=== PATIENT | female | born 1955 | race Caucasian/White ===

== ENCOUNTER 2017-11-29 08:59 | Inpatient (IN) | payer OTHER ==
[2017-11-29 09:47] LABS: ADD MAN DIFF? NO
[2017-11-29 09:52] LABS: WHITE BLOOD COUNT 8.4 10^3/ul (4.8-10.8)
[2017-11-29 09:52] LABS: BASOPHILS % 0.4 % (0.0-2.0); EOSINOPHILS % 0.2 % (0.0-7.0); HEMATOCRIT 38.2 % (37.0-47.0); HEMOGLOBIN 12.5 g/dl (12.0-16.0); LYMPHOCYTES # 1.5 10^3/ul (0.8-2.9); LYMPHOCYTES % 18.3 % (15.0-51.0); MEAN CORPUSCULAR HGB CONC 32.7 g/dl (32.0-37.0); MEAN CORPUSCULAR VOLUME 85.7 fl (82.0-101.0); MEAN PLATELET VOLUME 10.5 fl (7.4-10.4); MONOCYTE # 0.4 10^3/ul (0.3-0.9); MONOCYTES % 4.7 % (0.0-11.0); NEUTROPHIL # 6.4 10^3/ul (1.6-7.5); NEUTROPHILS % 76.2 % (39.0-77.0); PLATELET COUNT 298 10^3/UL (140-415); RED BLOOD COUNT 4.46 10^6/ul (4.20-5.40); RED CELL DISTRIBUTION WIDTH 13.3 % (11.5-14.5)
[2017-11-29] MEDS: LACTATED RINGER'S 1,000 ML IV* (09:54)
[2017-11-29 10:11] LABS: INR 0.96; PROTIME 12.9 Sec (11.9-14.9)
[2017-11-29 10:14] LABS: ALANINE AMINOTRANSFERASE 32 IU/L (13-69); ALBUMIN 4.1 g/dl (3.3-4.9); ALKALINE PHOSPHATASE 92 IU/L (42-121); ANION GAP 13 (8-16); ASPARTATE AMINO TRANSFERASE 31 IU/L (15-46); BILIRUBIN,INDIRECT 0.6 mg/dl (0-1.1); BILIRUBIN,TOTAL 0.6 mg/dl (0.2-1.3); BLOOD UREA NITROGEN 11 mg/dl (7-20); CALCIUM 9.3 mg/dl (8.4-10.2); CARBON DIOXIDE 29 mmol/L (21-31); CHLORIDE 107 mmol/L (97-110); CREATININE 0.58 mg/dl (0.44-1.00); GLUCOSE 98 mg/dl (70-220); POTASSIUM 3.7 mmol/L (3.5-5.1); SODIUM 145 mmol/L (135-144); TOTAL PROTEIN 8.2 g/dl (6.1-8.1)
[2017-11-29] MEDS ORDERED: ROCURONIUM 50 MG INJ (10:48)
[2017-11-29] MEDS ORDERED: CEFAZOLIN 1 GM INJ (10:48)
[2017-11-29] MEDS ORDERED: MIDAZOLAM 1 MG/ML 2 ML INJ (10:48)
[2017-11-29] MEDS ORDERED: PROPOFOL 20 ML (10:48)
[2017-11-29] MEDS ORDERED: OXYCODONE/ACETAMINOPHEN (5/325) TAB PO ×2 (11:00)
[2017-11-29] MEDS ORDERED: HYDROmorphONE 1 MG/5 ML IV SYRINGE IV ×3 (11:00)
[2017-11-29] MEDS ORDERED: DIPHENHYDRAMINE 50 MG INJ IV (11:00)
[2017-11-29] MEDS ORDERED: METOCLOPRAMIDE 10 MG INJ IV (11:00)
[2017-11-29] MEDS ORDERED: LABETALOL HCL 20MG INJ IV (11:00)
[2017-11-29] MEDS ORDERED: hydrALAzine 20 MG INJ IV (11:00)
[2017-11-29] MEDS ORDERED: ONDANSETRON 4 MG INJ IV ×2 (11:00→16:00)
[2017-11-29] MEDS ORDERED: FENTAnyl 50 MCG/ML VIAL IV ×3 (11:00)
[2017-11-29] MEDS ORDERED: EPHEDrine SULFATE 50 MG/5 ML SYG IV (11:00)
[2017-11-29] MEDS ORDERED: MEPERIDINE 25 MG INJ IV (11:00)
[2017-11-29] MEDS ORDERED: ONDANSETRON 4 MG INJ (12:11)
[2017-11-29] MEDS ORDERED: KETOROLAC 30 MG INJ (12:11)
[2017-11-29] MEDS ORDERED: METOCLOPRAMIDE 10 MG INJ (12:11)
[2017-11-29] MEDS ORDERED: DEXAMETHASONE 4 MG/ML 1 ML INJ (12:11)
[2017-11-29] MEDS ORDERED: NEOSTIGMINE 3 MG/3 ML SYRINGE (12:24)
[2017-11-29] MEDS ORDERED: GLYCOPYRROLATE 0.4 MG INJ (12:24)
[2017-11-29] MEDS ORDERED: morphine 2 MG INJ IV ×2 (13:00→16:00)
[2017-11-29] MEDS ORDERED: ACETAMINOPHEN 1000MG/100ML IV 100 ML IVPB (13:00)
[2017-11-29] MEDS: ONDANSETRON 4 MG INJ IV (14:41)
[2017-11-29] MEDS: D5W-0.45 NACL + KCL 20 MEQ 1,000 ML IV ×2 (14:47→22:43)
[2017-11-29] MEDS ORDERED: HYDROCODONE/APAP (5/325) TAB PO (16:00)
[2017-11-29] MEDS ORDERED: ZOLPIDEM 5 MG TAB PO (16:00)
[2017-11-29] MEDS: CEFAZOLIN 2 GM/50 ML (PMX) 50 ML IVPB (19:12)
[2017-11-29] MEDS ORDERED: NON-FORMULARY/PATIENT OWN MED (Latanoprost 1 DROP) BOTH EYES (21:00)
[2017-11-29] MEDS: LATANOPROST 0.005% 2.5 ML OPH BOTH EYES (21:32)
[2017-11-29] MEDS: FAMOTIDINE 20 MG TAB PO (21:32)
[2017-11-30] MEDS: D5W-0.45 NACL + KCL 20 MEQ 1,000 ML IV ×3 (06:08→20:50)
[2017-11-30 06:14] LABS: ADD MAN DIFF? NO
[2017-11-30 06:19] LABS: WHITE BLOOD COUNT 14.1 10^3/ul (4.8-10.8)
[2017-11-30 06:19] LABS: BASOPHILS % 0.1 % (0.0-2.0); HEMATOCRIT 33.3 % (37.0-47.0); HEMOGLOBIN 10.9 g/dl (12.0-16.0); LYMPHOCYTES # 1.1 10^3/ul (0.8-2.9); LYMPHOCYTES % 8.1 % (15.0-51.0); MEAN CORPUSCULAR HGB CONC 32.7 g/dl (32.0-37.0); MEAN CORPUSCULAR VOLUME 85.6 fl (82.0-101.0); MEAN PLATELET VOLUME 10.7 fl (7.4-10.4); MONOCYTE # 0.9 10^3/ul (0.3-0.9); MONOCYTES % 6.1 % (0.0-11.0); NEUTROPHILS % 85.3 % (39.0-77.0); PLATELET COUNT 277 10^3/UL (140-415); RED BLOOD COUNT 3.89 10^6/ul (4.20-5.40); RED CELL DISTRIBUTION WIDTH 13.9 % (11.5-14.5)
[2017-11-30 07:12] LABS: ANION GAP 9 (8-16); BLOOD UREA NITROGEN 7 mg/dl (7-20); CALCIUM 8.8 mg/dl (8.4-10.2); CARBON DIOXIDE 26 mmol/L (21-31); CHLORIDE 110 mmol/L (97-110); CREATININE 0.53 mg/dl (0.44-1.00); GLUCOSE 125 mg/dl (70-220); SODIUM 141 mmol/L (135-144)
[2017-11-30] MEDS: FAMOTIDINE 20 MG TAB PO ×2 (08:48→20:49)
[2017-11-30] MEDS: LATANOPROST 0.005% 2.5 ML OPH BOTH EYES (20:50)
[2017-12-01] MEDS: D5W-0.45 NACL + KCL 20 MEQ 1,000 ML IV ×2 (05:00→13:00)
[2017-12-01] MEDS: FAMOTIDINE 20 MG TAB PO (09:19)
[2017-12-01] MEDS: BISACODYL (EC) 5 MG TAB PO (10:29)
[2017-12-01] MEDS: MAGNESIUM HYDROXIDE 30ML CUP PO (13:16)
== END 2017-12-01 14:07 | disposition home or self-care (01) | DRG 580 ==
LOC: REC 08:59 → MS1 11-30 02:35
PROC: 0HTT0ZZ Resection of Right Breast, Open Approach (ICD-10-PCS; principal; 2017-11-29 11:20)
PROC: 07B50ZZ Excision of Right Axillary Lymphatic, Open Approach (ICD-10-PCS; 2017-11-29 11:20)
DX: C50.911 Malignant neoplasm of unspecified site of right female breast (principal); C77.3 Secondary and unspecified malignant neoplasm of axilla and upper limb lymph nodes; H40.9 Unspecified glaucoma; I10 Essential (primary) hypertension; I44.7 Left bundle-branch block, unspecified; K29.70 Gastritis, unspecified, without bleeding; K21.9 Gastro-esophageal reflux disease without esophagitis
CPT/HCPCS: 71045; 80048; 80053; 85025; 85610; 85730; 88307; 93005

== ENCOUNTER 2018-11-29 15:27 | Emergency (ER) | payer OTHER | END 2018-11-29 16:54 | disposition home or self-care (01) | LOC: FTE 16:54 | DX: R20.0 Anesthesia of skin (principal); T50.2X5A Adverse effect of carbonic-anhydrase inhibitors, benzothiadiazides and other diuretics, initial encounter; Z85.3 Personal history of malignant neoplasm of breast | CPT/HCPCS: 99282; Z7502 ==